=== PATIENT | female | born 1950 | race Caucasian/White ===

== ENCOUNTER 2019-03-03 18:08 | Emergency (ER) | payer BC ==
[~2019-03-03] VITALS: Ht 175.3 cm; Wt 74.8 kg
[~2019-03-03 18:08] MED LIST: ARIP2TAB3 PO; BACL10TA PO; GABA600T12 PO; HYDR-3980 PO; LEVO25TA2 PO; SERT50TA PO
[2019-03-03] MEDS ORDERED: MAGNESIUM SULFATE 2 GM in IV DEXTROSE 5% 100 ML IV STA (18:49)
[2019-03-03 18:53] LABS: BASOPHILS # (AUTO) 0.1 K/uL (0.0-8.0); BASOPHILS % (AUTO) 0.7 % (0.0-2.0); EOSINOPHILS # (AUTO) 0.2 K/uL (0.0-0.7); EOSINOPHILS % (AUTO) 2.9 % (0.0-7.0); HEMATOCRIT 32.5 % (31.2-41.9); HEMOGLOBIN 10.7 g/dL (10.9-14.3); LYMPHOCYTES # (AUTO) 1.8 K/uL (20.0-40.0); MEAN CORPUSCULAR HEMOGLOBIN 27.1 uug (24.7-32.8); MEAN CORPUSCULAR HGB CONC 33 g/dL (32.3-35.6); MEAN CORPUSCULAR VOLUME 82.5 fL (75.5-95.3); MONOCYTES # (AUTO) 0.8 K/uL (2.0-10.0); MONOCYTES % (AUTO) 11.3 % (0.0-11.0); NEUTROPHILS # (AUTO) 4.1 K/uL (1.8-8.9); NEUTROPHILS % (AUTO) 59.1 % (38.5-71.5); PLATELET COUNT (AUTO) 285 K/uL (179-408); RED BLOOD CELL COUNT(AUTO) 3.94 MIL/uL (3.63-4.92); WHITE BLOOD COUNT (AUTO) 6.9 K/uL (3.8-11.8)
[2019-03-03 18:54] LABS: CREATININE 0.8 mg/dL (0.6-1.3); POTASSIUM 4.4 mmol/L (3.5-5.1)
[2019-03-03 19:00] LABS: BILIRUBIN,DIRECT 0.1 mg/dL (0.0-0.2); BILIRUBIN,TOTAL 0.3 mg/dL (0.2-1.0); TOTAL PROTEIN, SERUM 6.7 g/dL (6.4-8.2)
--- NOTE | 2019-03-03 19:00 | NUR ---
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 COMPLIANTM, SIDERAILSX2 UP, BED AT LOWEST POSITION MONITORED ACCORDINGLY
[2019-03-03] MEDS ORDERED: MAGNESIUM SULFATE/D5W 200 ML ONE (19:09)
[2019-03-03 19:12] LABS: *BILIRUBIN,URIN NEGATIVE (NEGATIVE); *BLOOD, URINE NEGATIVE (NEGATIVE); *CLARITY,URINE CLEAR (CLEAR); *KETONES,URINE NEGATIVE (NEGATIVE); *UROBILINOGEN,URINE 0.2 E.U./dl (NORMAL); LEUKOCYTE ESTERASE ,URINE TRACE (NEGATIVE); NITRITE, URINE NEGATIVE (NEGATIVE); PH,URINE 5.5 (5.0-8.0); UGLUCOSE NEGATIVE (NEGATIVE)
[2019-03-03 19:18] LABS: MAGNESIUM 2.3 mg/dL (1.8-2.4)
[2019-03-03 19:20] LABS: *COLOR,URINE LIGHT YELLOW (YELLOW)
[2019-03-03 19:21] LABS: SQUAMOUS EPITHELIAL CELL,UR FEW /HPF (NONE SEEN); WBC,URINE 0-3 /HPF (0-3)
[2019-03-03 19:37] LABS: THYROID STIMULATING HORMONE 2.405 mIU/mL (0.358-3.740)
--- NOTE | 2019-03-03 19:44 | NUR ---
PT ABLE TO TOLERATE IVF, REPORTS INTERMITTENT SPASM OF LEFT LEG DENIES PAIN
--- NOTE | 2019-03-03 22:26 | NUR ---
Patient discharged to home in stable conditon. Written and verbal after care instructions given. Patient verbalizes understanding of instructions. Pt ambulated out of ER with steady gait, no acute signs of distress, VSS, all belongings taken, IV site discontinued, pt to be driven home via private vehicle by .
[2019-03-03 22:28] VITALS: BP 132/71
== END 2019-03-03 22:28 | disposition home or self-care (01) ==
LOC: ER 18:12
DX: M79.10 Myalgia, unspecified site (principal); R42 Dizziness and giddiness; F32.9 Major depressive disorder, single episode, unspecified; E03.9 Hypothyroidism, unspecified; Z88.0 Allergy status to penicillin; Z88.2 Allergy status to sulfonamides; Z79.899 Other long term (current) drug therapy
CPT/HCPCS: 36415; 80048; 80076; 81000; 81001; 82550; 83735; 84443; 85025; 93005; 96365; 99284; J3475; A4663

== ENCOUNTER 2021-03-22 13:04 | Inpatient (IN) | payer MEDICARE, BC ==
[~2021-03-22] VITALS: Ht 175.3 cm; Wt 79.4 kg
[~2021-03-22 13:04] MED LIST changes: -ARIP2TAB3 PO; -SERT50TA PO
--- NOTE | 2021-03-22 13:10 | NUR ---
at bedside for MSE.
[2021-03-22] MEDS ORDERED: ACETAMINOPHEN ES 500 MG TABLET PO ONE (13:30)
[2021-03-22] MEDS ORDERED: IBUPROFEN 600 MG TABLET PO ONE (13:30)
[2021-03-22 13:33] LABS: HEMATOCRIT 40.4 % (31.2-41.9); MEAN CORPUSCULAR VOLUME 89.5 fL (75.5-95.3); PLATELET COUNT (AUTO) 235 K/uL (179-408)
[2021-03-22 13:42] LABS: POTASSIUM 3.4 mmol/L (3.5-5.1)
[2021-03-22] MEDS ORDERED: ACETAMINOPHEN ES 500 MG TABLET ONE (13:44)
[2021-03-22] MEDS ORDERED: IBUPROFEN 600 MG TABLET ONE (13:45)
[2021-03-22 13:47] LABS: BILIRUBIN,DIRECT 0.1 mg/dL (0.0-0.2); BILIRUBIN,TOTAL 0.4 mg/dL (0.2-1.0); TOTAL PROTEIN, SERUM 6.9 g/dL (6.4-8.2)
[2021-03-22] MEDS ORDERED: ASPIRIN 81 MG TAB.CHEW PO ONE (14:45)
--- NOTE | 2021-03-22 15:00 | NUR ---
Tha Kidd PROFESSOR OF GEOGRAPHY accepted patient for admission to [facility], Dx: Chest Pain. Belongings list completed.
[2021-03-22] MEDS ORDERED: ASPIRIN 81 MG TAB.CHEW ONE (15:14)
[2021-03-22] MEDS ORDERED: HYDROCODONE/APAP 10-325 MG TABLET PO PRN (15:30)
--- NOTE | 2021-03-22 15:30 | NUR ---
Report given to Vanessa WALTON.
--- NOTE | 2021-03-22 15:36 | NUR ---
Received Patient around 330pm in stable condition. no c/o of chest pain/discomfort. Patient DX: Chest pain. on cardiac diet. Patient with IV access left AC G20, intact and patent. Patient skin intact, not in distress. will continue monitor
--- NOTE | 2021-03-22 15:41 | NUR ---
Pt brought to Room 305 via wheelchair, gwendolyni n stable condition.
[2021-03-22 15:55] VITALS: BP 114/64
[2021-03-22] MEDS ORDERED: ACETAMINOPHEN 325 MG TABLET PO PRN (16:15)
[2021-03-22] MEDS ORDERED: HYDROCODONE/APAP 5-325MG TABLET PO PRN (16:15)
[2021-03-22] MEDS ORDERED: MAGNESIUM HYDROXIDE 30 ML LIQUID UDC PO PRN (16:15)
[2021-03-22] MEDS ORDERED: ZOLPIDEM 5 MG TABLET PO PRN (16:15)
[2021-03-22] MEDS ORDERED: NITROGLYCERIN 0.4 MG/TAB BOTTLE SL PRN (16:15)
[2021-03-22] MEDS ORDERED: ONDANSETRON 4 MG/2 ML VIAL IV PRN (16:15)
[2021-03-22] MEDS ORDERED: Z GUARD REMEDY PASTE 57 GM TUBE TOP PRN (16:15)
[2021-03-22] MEDS: LEVOTHYROXINE SODIUM 88 MCG TABLET PO SCH (16:59)
[2021-03-22] MEDS ORDERED: POTASSIUM CHLORIDE 20 MEQ TAB.PRT.SR PO ONE (17:00)
[2021-03-22] MEDS: BACLOFEN 10 MG TABLET PO SCH (17:01)
[2021-03-22] MEDS: GABAPENTIN 300 MG CAPSULE PO SCH (17:05)
--- NOTE | 2021-03-22 19:45 | NUR ---
Received patient in bed awake alert and able to make needs known.Denies chest pain.On RA.No s/s of distress noted. Iv on left AC patent and intact. Safety measures in place. Call light with in reach.
[2021-03-22 20:19] VITALS: BP 124/72
[2021-03-22] MEDS ORDERED: ENOXAPARIN SODIUM 40 MG/0.4 ML DISP.SYRIN SQ SCH (21:00)
[2021-03-23 00:18] VITALS: BP 135/65
[2021-03-23 04:51] VITALS: BP 142/82
[2021-03-23 05:44] LABS: HEMATOCRIT 36.7 % (31.2-41.9); MEAN CORPUSCULAR HEMOGLOBIN 30.1 uug (24.7-32.8); MEAN CORPUSCULAR VOLUME 90.2 fL (75.5-95.3); PLATELET COUNT (AUTO) 199 K/uL (179-408)
[2021-03-23 06:00] LABS: CREATININE 0.8 mg/dL (0.6-1.3); MAGNESIUM 2.4 mg/dL (1.8-2.4)
[2021-03-23 06:04] LABS: THYROID STIMULATING HORMONE 0.949 mIU/mL (0.358-3.740)
[2021-03-23] MEDS ORDERED: PANTOPRAZOLE SODIUM 40 MG TABLET.DR PO SCH (07:00)
--- NOTE | 2021-03-23 07:20 | NUR ---
Received patient lying in bed. AOx4. No acute distress noted. Patient denies SOB and chest pain. Due medications were given, patient tolerating medications well. Safety and comfort measures were maintained. Call light within reach. Will continue to monitor.
[2021-03-23] MEDS: LEVOTHYROXINE SODIUM 88 MCG TABLET PO SCH (08:50)
[2021-03-23] MEDS: BACLOFEN 10 MG TABLET PO SCH ×2 (08:50→13:40)
[2021-03-23] MEDS: GABAPENTIN 300 MG CAPSULE PO SCH ×2 (08:50→13:40)
[2021-03-23] MEDS ORDERED: ASPIRIN 81 MG TAB.CHEW PO SCH (09:00)
--- NOTE | 2021-03-23 09:35 | NUR ---
MEDICATED X1 WITH NORCO FOR MONTANEZ 01/05. OBSERVE
--- NOTE | 2021-03-23 09:52 | NUR ---
SEEN BY [employer] ARCHITECT DR REAL, CLEARED TO GO CARDIAC STANDPOINT AND WILL FOLLOW AN OUTPATIENT
[2021-03-23 11:01] VITALS: BP 133/78
[2021-03-23] MEDS ORDERED: ATOR40TA PO (12:21)
[2021-03-23] MEDS ORDERED: ASPI81TA31 PO (12:21)
[2021-03-23] MEDS ORDERED: NITR0.4T48 SL (12:21)
--- NOTE | 2021-03-23 15:30 | NUR ---
D/C order was carried out. Patient was given discharge instructions. Patient was able to comprehend instructions. Picked up by at 3:25pm.
[2021-03-23] MEDS ORDERED: ATORVASTATIN 40 MG TABLET PO SCH (21:00)
== END 2021-03-23 15:25 | disposition home or self-care (01) | DRG 311 ==
LOC: ER 13:04 → TELE3 15:38
PROVIDERS: ADMIT Nurse Practitioner Family; ATTEND Nurse Practitioner Family
DX: I20.0 Unstable angina (principal); E87.6 Hypokalemia; E03.9 Hypothyroidism, unspecified; E78.5 Hyperlipidemia, unspecified; E83.52 Hypercalcemia; Z85.3 Personal history of malignant neoplasm of breast; Z90.13 Acquired absence of bilateral breasts and nipples; Z20.822 Contact with and (suspected) exposure to COVID-19
CPT/HCPCS: 36415; 70030-TC; 71045; 83735; 84443; 85025; 93005; 93307; A4663; A9150; G0378; J1650